=== PATIENT | male | born 1995 | race Caucasian/White ===

== ENCOUNTER 2018-05-12 10:25 | Emergency (ER) | payer MEDICAID ==
[~2018-05-12] VITALS: Ht 170.2 cm; Wt 68.0 kg
[2018-05-12] MEDS ORDERED: VISCOUS LIDOCAINE 2% 15 ML UDC PO STA (11:50)
[2018-05-12] MEDS ORDERED: FAMOTIDINE 20MG/2ML VIAL IV STA (11:50)
[2018-05-12] MEDS ORDERED: MAGNESIUM/ALUMINUM HYDROXIDE/SIMETHICONE 30ML UDC PO STA (11:50)
[2018-05-12 12:09] LABS: BASOPHILS % 0.5 % (0.0-2.0); EOSINOPHILS % 0.9 % (0.0-5.0); HEMOGLOBIN. 15.5 g/dL (14.0-18.0); LYMPHOCYTES % 14.8 % (20.0-50.0); MEAN CORPUSCULAR HEMOGLOBIN 28.9 pg (28.0-32.0); MEAN CORPUSCULAR VOLUME 84.1 fL (80.0-94.0); MEAN PLATELET VOLUME 7.2 fl (7.4-10.4); MONOCYTES % 8.8 % (2.0-8.0); PLATELET 261 x1000/uL (130-400); RED BLOOD CELL COUNT 5.36 mill/uL (4.7-6.1); RED CELL DISTRIBUTION WIDTH 13.8 % (11.6-14.6)
[2018-05-12 12:16] LABS: CHLORIDE 104 mEq/L (98-107)
[2018-05-12 12:35] LABS: PROTHROMBIN TIME 10.7 sec (9.4-11.6)
[2018-05-12 13:02] LABS: CLARITY URINE CLEAR (CLEAR); COLOR URINE DARK YELLOW (YELLOW); KETONES URINE TRACE (NEGATIVE); LEUKOCYTE ESTERASE URINE NEGATIVE (NEGATIVE); NITRITE URINE NEGATIVE (NEGATIVE); OCCULT BLOOD URINE NEGATIVE (NEGATIVE); PH URINE 5.5 (4.5-8.0); PROTEIN URINE TRACE (NEGATIVE); SPECIFIC GRAVITY URINE 1.035 (1.005-1.030)
[2018-05-12 17:15] VITALS: BP 119/78
== END 2018-05-12 17:21 | disposition home or self-care (01) ==
LOC: ER 10:39
DX: R10.84 Generalized abdominal pain (principal); R19.7 Diarrhea, unspecified; R25.1 Tremor, unspecified; R51 Headache; R63.0 Anorexia; Z68.24 Body mass index [BMI] 24.0-24.9, adult
CPT/HCPCS: 36415; 74176; 80053; 81003; 83690; 85025; 85610; 96374; 99285; J3490